=== PATIENT | male | born 1985 | race Caucasian/White ===

== ENCOUNTER → 2016-12-13 | Outpatient (CLI) | payer OTHER ==
[~2016-12-13] MED LIST: FLONASE ALLERG9.9 ML; FLUOXETINE HCL40 M1 PO; LEVOTHYROXINE50 MCG PO; LISINOPRIL PO; LOPRESSOR PO; OMEPRAZOLE20 M2 PO; PHENERGAN PO; PHENERGAN12.5 MG PO; PHENERGAN25 M1; PROZAC PO; RISPERIDONE O0.25 MG PO; SEROQUEL PO; SYNTHROID; TAGAMET PO; VITAMIN D1000 UNI2; VITAMIN D22000 UNIT PO; VOLTAREN75 MG PO; WELLBUTRIN XL PO; ZYRTEC10 M1 PO
--- NOTE | ~2016-12-13 | CR4 ---
[facility] A Service of [facility] RADIOLOGY TEXT RESULTS PATIENT: ONEAL PALAFOX LOCATION: [facility] : 85 UNIT #: [id number] AGE: [address]: Lyndsey Jacobson MD SEX: M ORDER DR: [id number] [facility] [address] [place], [place] [address] [id number] O MR#: [id number] #: [id number] NAME: ONEAL PALAFOX : 1985 SEX: M STUDY DATE/TIME: 12/13/2016 10:43 UNIT: [facility] ROOM: STUDY DESCRIPTION: CR Abdomen Flat Upright or Dec Attending Physician: Lyndsey Jacobson M.D. Referring Physician: Lyndsey Jacobson M.D. Ordering Physician: Lyndsey Jacobson M.D. Primary Care Physician: [facility] IMAGING REPORT This report is preliminary unless electronic signature is present EXAM Flat and upright abdomen HISTORY Nausea and vomiting for the past 4 months. TECHNIQUE Flat and upright views of the abdomen were obtained and compared with 09/15/2008. FINDINGS AP supine and upright examination of the abdomen shows a normal gas and fecal pattern distribution throughout large and small bowel without distended loops in either area. There is no indication of extraluminal air, visceromegaly, or soft tissue density mass. The renal definitions are fairly well demarcated and normal in shape and size. No abnormal intra-abdominal calcifications are present. IMPRESSION Normal abdomen. Dictated by... Ck Bauer M.D. THIS IS AN ELECTRONICALLY VERIFIED REPORT Ck Bauer M.D. at 12/14/2016 3:44 PM JEAN/marsha TD: 12/14/2016 07:27 JOB #: [id number] [facility] A Service of [facility] RADIOLOGY TEXT RESULTS PATIENT: ONEAL PALAFOX LOCATION: [facility] : 85 UNIT #: [id number] AGE: [address]: Lyndsey Jacobson MD SEX: M ORDER DR: MEDICAL IMAGING REPORT Page 1 of 1 COPY
== END | disposition home or self-care (01) ==
LOC: CRAD 10:29
DX: R11.2 Nausea with vomiting, unspecified (principal)
CPT/HCPCS: 74020